=== PATIENT | male | born 1985 | race Caucasian/White ===

== ENCOUNTER 2022-09-22 01:06 | Emergency (ER) | payer OTHER ==
[~2022-09-22] VITALS: Ht 177.8 cm; Wt 77.3 kg
[2022-09-22 01:13] VITALS: TEMP 98.6
[2022-09-22 02:20] VITALS: BP 128/84; PULSE 69
== END 2022-09-22 02:36 | disposition home or self-care (01) ==
LOC: COL.ER 01:06
DX: F43.0 Acute stress reaction (principal)